=== PATIENT | male | born 1940 | race American Indian/Alaskan Native ===

== ENCOUNTER 2018-04-19 18:55 | Inpatient (IN) | payer MEDICARE, MEDICAID ==
--- NOTE | 2018-04-19 19:11 | ED PDOC ---
"Arrival/HPI - General Chief Complaint: Weakness/Neurological Deficit Time Seen by Provider: 04/19/18 19:09 Historian: Patient EM Caveat: Acuity of Condition - History of Present Illness Narrative History of Present Illness (Text): 04/19/18 19:21 77 yr old male w/ hx of CVA, HTN, DM2 and dementia p/w L leg weakness, transfer from [facility] for rule out CVA. Per RN and transfer papers pt was sent in by Dr. Watson to rule out stroke. Pt was noted to have L Leg weakness right before transfer by Dr. Watson. Unknown last well time. Pt at this point is demented- limited history. Past Medical History - Provider Review Nursing Documentation Reviewed: Yes - Patient History Narrative Patient History: DM2, Stroke, HTN, Dementia Family/Social History Family/Social History: Unknown Family HX Allergies/Home Meds Allergies/Adverse Reactions: Allergies Unobtainable Allergy (Verified 04/19/18 19:36) Review of Systems - Review of Systems Systems not reviewed;Unavailable: Other (dementia) Physical Exam Vital Signs Temp Pulse Resp BP Pulse Ox 04/19/18 19:49 100.0 F H 81 18 140/70 97 04/19/18 19:46 100.0 F H 81 18 140/70 97 Medical Decision Making ED Course and Treatment: 04/19/18 19:41 77 yr old male w/ hx of CVA, Dementia, htn, DM2 p/w LE weakness and exact unk last well per RN and nursing staff at [facility] (likely yesterday). Given hx of antiplatelet w/ plavix, hx of dementia, low NIHSS 2/2 only one LE will likely not be a TPA candidate. appreciate consult w/ Dr. Brock: MRI, ASA pending CT, will see pt. Orders placed, pt to CT. 04/19/18 21:23: Case discussed in detail with Dr. Alberts who accepts patient to her service. EXAM: CT Head Without Intravenous Contrast CLINICAL HISTORY: 77 years old, male; Signs and symptoms; Weakness, extremity; Left; Additional info: Code stroke TECHNIQUE: Axial computed tomography images of the head/brain without intravenous contrast. All CT scans at this facility use at least one of these dose optimization techniques: automated exposure control; mA and/or kV adjustment per patient size (includes targeted exams where dose is matched to clinical indication); or iterative reconstruction. COMPARISON: No relevant prior studies available. FINDINGS: Brain: Diffuse decreased decreased parenchymal density associated with volume loss within the inferior frontal lobes bilaterally likely sequela of remote infarct or traumatic insult. There is moderate diffuse cerebral atrophy present, consistent with this patient's age. The brain is otherwise unremarkable. Normal arredondo-white matter differentiation is present, without acute hemorrhage, or mass. Ventricles: Unremarkable. No ventriculomegaly. Bones/joints: Postsurgical traumatic changes of the frontal bone bilaterally. Callaway hole craniotomy changes of the frontal bones. Moderate bilateral pleural effusions are present. No acute fracture. JOSÉ LUIS SEAY | Preliminary Radiology Report PERSONNEL ADMINISTRATOR (QA) DISCREPANCY? If there is a discrepancy between the preliminary and final interpretation, please notify [facility] via [email or web address]. If you do not have access to our QA portal, call our QA team at [phone] CONFIDENTIALITY STATEMENT This report is intended only for the use of the referring physician, and only in accordance with law, If you received this in error, call [phone] Page 2 of 2 Soft tissues: Unremarkable. Sinuses: Sinuses are clear without air-fluid levels, or mucoperiosteal thickening. Mastoid air cells: Unremarkable as visualized. No mastoid effusion. IMPRESSION: No acute intracranial findings are present. Chronic appearing changes and postsurgical changes, which are described in Dictated and Authenticated by: Drerick Wakefield MD 04/19/2018 8:05 PM Eastern Time ([place] & [place]) Addendum created by Derrick Wakefield MD on 04/19/2018 8:18 PM Eastern Time ([place] & [place]) THIS REPORT CONTAINS FINDINGS THAT MAY BE CRITICAL TO PATIENT CARE. The findings were verbally communicated via telephone conference with Wayne Munoz at 8:17 PM EDT on 04/19/2018. The findings were acknowledged and understood. Initial Report created on 04/19/2018 8:05 PM Eastern Time ([place] & [place]) 04/19/18 22:04: Head CT shows no acute stroke. EKG: Ordered, reviewed, and independently interpreted the EKG. Rate : 82 BPM Rhythm : NSR Interpretation : No STEMI - Lab Interpretations Lab Results: 04/19/18 19:40 04/19/18 19:40 Lab Results 04/19/18 19:45: pCO2 36, pO2 67.0 L, HCO3 22.8, ABG pH 7.41, ABG Total CO2 23.9 , ABG O2 Saturation 96.4, ABG Base Excess -1.4, ABG Potassium 4.1, Glucose 227 H , Lactate 0.7, FiO2 21.0, Sodium 143.0, Chloride 113.0 H, Arterial Blood Potassium 4.1 04/19/18 19:40: Blood Type Pending, Antibody Screen Pending, BBK History Checked No verified bt 04/19/18 19:40: Sodium 146, Potassium 4.4, Chloride 111 H, Carbon Dioxide 22, Anion Gap 18, BUN 96 H, Creatinine 2.9 H, Est GFR ( Amer) 26, Est GFR ( Non-Af Amer) 21, Random Glucose 233 H, Calcium 10.4, Total Bilirubin 0.5, AST 38 , ALT 31, Alkaline Phosphatase 119, Troponin I < 0.01, Total Protein 7.9, Albumin 3.5, Globulin 4.4, Albumin/Globulin Ratio 0.8 L, Triglycerides 121, Cholesterol 96 L, LDL Cholesterol Direct < 30, HDL Cholesterol 19 L 04/19/18 19:40: PT 15.5 H, INR 1.35, APTT 29.4 04/19/18 19:40: WBC 12.0 H, RBC 3.48 L, Hgb 10.1 L, Hct 30.3 L, MCV 87.1, MCH 29.0, MCHC 33.3, RDW 12.9, Plt Count 347, MPV 9.8, Gran % 75.8 H, Lymph % (Auto ) 12.3 L, [place] % (Auto) 9.2 H, Eos % (Auto) 2.3, Baso % (Auto) 0.4, Gran # 9.07 H, Lymph # (Auto) 1.5, [place] # (Auto) 1.1 H, Eos # (Auto) 0.3, Baso # (Auto) 0.05 - RAD Interpretation Radiology Orders: 04/19/18 19:39 HEAD W/O (CODE STROKE) [CT] Stat BRAIN WITHOUT CONTRAST [MRI] Stat 04/19/18 20:03 CHEST PORTABLE [RAD] Stat - EKG Interpretation EKG Interpretation (Text): 04/19/18 20:25 82, NSR, no stemi Interpreted by ED Physician: Yes Type: 12 lead EKG - Medication Orders Current Medication Orders: Discontinued Medications Aspirin (Aspirin Supp) 300 mg RC STAT STA Stop: 04/19/18 20:37 Last Admin: 04/19/18 20:52 Dose: 300 mg NIHSS Scale ([place]) Time Performed: 21:31 - How Severe is the Stoke Baseline Level of Consciousness: 0=Alert LOC to Questions: 1=One correct LOC to commands: 1=Obeys one correctly Best Gaze: 0=Normal Visual: 0=No visual loss Facial: 0=Normal Motor Arm - Left: 0=No drift Motor Arm - Right: 0=No drift Motor Leg - Left: 0=No drift Motor Leg - Right: 0=No drift Limb Ataxia: 0=Absent Sensory: 0=Normal Best Language: 0=No aphasia Dysarthia: 0=Normal articulation Extinction & Inattention (Neglect): 0=Normal, no object Score: 2 Risk Level: Minor Stroke Risk - Notes Notes: Patient has a history of dementia. Disposition/Present on Arrival - Present on Arrival Any Indicators Present on Arrival: No History of DVT/PE: No History of Uncontrolled Diabetes: No Urinary Catheter: No History of Decub. Ulcer: No - Disposition Have Diagnosis and Disposition been Completed?: Yes Diagnosis: Stroke-like episode, LILIBETH (acute kidney injury) Disposition: HOSPITALIZED Disposition Time: 21:30 Patient Plan: Admission Patient Problems: Current Active Problems Problem Status Onset Stroke-like episode Acute LILIBETH (acute kidney injury) Acute Condition: GOOD"
[2018-04-19 19:36] VITALS: BMI 35.9
[2018-04-19 19:53] LABS: ARTERIAL BLOOD GAS HCO3 22.8 mmol/L (21-28); ARTERIAL BLOOD GAS O2 SAT 96.4 % (95-98); ARTERIAL BLOOD GAS PCO2 36 mm/Hg (35-45); ARTERIAL BLOOD GAS PH 7.41 (7.35-7.45); ARTERIAL BLOOD GAS TCO2 23.9 mmol.L (22-28)
[2018-04-19 20:12] LABS: BASO # 0.05 K/mm3 (0.0-2.0); BASO % 0.4 % (0.0-3.0); EOS # 0.3 (0.0-0.7); EOS % 2.3 % (1.5-5.0); GRAN # 9.07 (1.4-6.5); GRAN % 75.8 % (50.0-68.0); HEMOGLOBIN 10.1 g/dL (14.0-18.0); LYMPH # 1.5 (1.2-3.4); LYMPH % 12.3 % (22.0-35.0); MEAN CELL VOLUME 87.1 fl (80.0-105.0); MEAN CORPUSCULAR HGB CONC 33.3 g/dl (31.0-37.0); MEAN PLATELET VOLUME 9.8 fl (7.0-11.0); MONO # 1.1 (0.1-0.6); MONO % 9.2 % (1.0-6.0); RBC 3.48 10^6/uL (3.5-6.1); RED CELL DISTRIBUTION WIDTH 12.9 % (11.5-14.5)
[2018-04-19 20:23] LABS: INR 1.35; PARTIAL THROMBOPLASTIN TIME 29.4 Seconds (25.1-36.5); PROTHROMBIN TIME 15.5 SECONDS (9.4-12.5)
[2018-04-19 20:24] LABS: ALB/GLOB RATIO 0.8 (1.1-1.8); ALBUMIN 3.5 g/dL (3.0-4.8); ALT/SGPT 31 U/L (7-56); AST/SGOT 38 U/L (17-59); BLOOD UREA NITROGEN 96 mg/dL (7-21); CALCIUM 10.4 mg/dL (8.4-10.5); GFR NON-AFRICAN AMERICAN 21; HDL CHOLESTEROL 19 mg/dL (29-60)
[2018-04-19 20:36] LABS: LDL CHOLESTEROL < 30 mg/dL (0-129)
[2018-04-19 20:38] LABS: TROPONIN I < 0.01 ng/mL
--- NOTE | 2018-04-20 08:20 | CT ---
Date of service: 04/19/2018 PROCEDURE: CT HEAD WITHOUT CONTRAST. HISTORY: Code Stroke COMPARISON: None available. TECHNIQUE: Axial computed tomography images were obtained through the head/brain without intravenous contrast. Radiation dose: Total exam DLP = 892.17 mGy-cm. This CT exam was performed using one or more of the following dose reduction techniques: Automated exposure control, adjustment of the mA and/or kV according to patient size, and/or use of iterative reconstruction technique. FINDINGS: HEMORRHAGE: No intracranial hemorrhage. BRAIN: There is cystic encephalomalacia in both frontal lobes and left temporal lobe. No mass, mass effect or abnormal extra-axial fluid VENTRICLES: Collection. Ex vacuo dilatation of the frontal horns. Moderate age-related global parenchymal volume loss with CALVARIUM: Status post left frontal parietal craniotomy. There are cem abort holes in the right frontal and bilateral parietal calvarium PARANASAL SINUSES: Unremarkable as visualized. No significant inflammatory changes. MASTOID AIR CELLS: Unremarkable as visualized. No inflammatory changes. OTHER FINDINGS: None. IMPRESSION: No acute findings. Bifrontal and left temporal cystic encephalomalacia with plaques vacuo dilatation of the lateral ventricles. Moderate age-related global parenchymal volume loss. A preliminary report was provided by [email or web address].
[2018-04-20 08:42] LABS: HDL CHOLESTEROL 20 mg/dL (29-60)
[2018-04-20 08:58] LABS: LDL CHOLESTEROL < 30 mg/dL (0-129)
--- NOTE | 2018-04-20 10:31 | RAD ---
Date of service: 04/19/2018 HISTORY: Code Stroke COMPARISON: No prior. FINDINGS: LUNGS: The lungs are clear. PLEURA: No significant pleural effusion identified, no pneumothorax apparent. There are calcified pleural plaques on the right. CARDIOVASCULAR: Normal. OSSEOUS STRUCTURES: No significant abnormalities. VISUALIZED UPPER ABDOMEN: Normal. OTHER FINDINGS: None. IMPRESSION: No acute findings.
--- NOTE | 2018-04-20 14:26 | CARD ---
APPROVED REPORT Date of service: 04/20/2018 EXAM: Two-dimensional and M-mode echocardiogram with Doppler and color Doppler. INDICATION POSSIBLE STROKE 2D DIMENSIONS Left Atrium (2D)4.6 (1.6-4.0cm)IVSd1.4 (0.7-1.1cm) LVDd4.5 (3.9-5.9cm)PWd1.3 (0.7-1.1cm) LVDs3.1 (2.5-4.0cm)FS (%) 30.3 % LVEF (%)57.8 (>50%) M-Mode DIMENSIONS Aortic Root3.90 (2.2-3.7cm)Aortic Cusp Exc.1.80 (1.5-2.0cm) Aortic Valve AoV Peak Tzofebpt767.0cm/Guillermina Peak GR.10mmHg Mitral Valve MV E Pbnotczh10.2cm/sMV A Irhmtsoq30.2cm/sE/A ratio0.7 TDI Lateral E' Peak V7.21cm/sMedial E' Peak V6.43cm/sE/Lateral E'9.3 E/Medial E'10.5 Pulmonary Valve PV Peak Yjwidcba554.0cm/sPV Peak Grad.5mmHg Tricuspid Valve TR Peak Yohhocry981eg/sRAP [id number] Peak Gr.23mmHg [id number] LEFT VENTRICLE The left ventricle is normal size. There is mild concentric left ventricular hypertrophy. The left ventricular function is normal. The left ventricular ejection fraction is within the normal range. There is normal LV segmental wall motion. Transmitral Doppler flow pattern is Grade I-abnormal relaxation pattern. RIGHT VENTRICLE The right ventricle is mildly dilated. There is normal right ventricular wall thickness. The right ventricular systolic function is normal. ATRIA The left atrium size is normal. The right atrium size is normal. AORTIC VALVE The aortic valve is mildly thickened. There is mild aortic regurgitation. There is no aortic valvular stenosis. MITRAL VALVE The mitral valve is mildly thickened. Mitral regurgitation is mild. There is no mitral valve stenosis. TRICUSPID VALVE The tricuspid valve is normal in structure. There is mild pulmonary hypertension. PULMONIC VALVE The pulmonary valve is normal in structure. There is trace pulmonic valvular regurgitation. GREAT VESSELS The aortic root is mildly enlarged. The IVC is normal in size and collapses >50% with inspiration. PERICARDIAL EFFUSION There is a small loculated anterior pericardial effusion. <Conclusion> The left ventricle is normal size. There is mild concentric left ventricular hypertrophy. The left ventricular function is normal. The left ventricular ejection fraction is within the normal range. There is normal LV segmental wall motion. Transmitral Doppler flow pattern is Grade I-abnormal relaxation pattern. There is mild aortic regurgitation. Mitral regurgitation is mild. There is mild pulmonary hypertension. The aortic root is mildly enlarged.
--- NOTE | 2018-04-20 17:56 | CARD ---
APPROVED REPORT Date of service: 04/19/2018 EKG Measurement Heart [id number] <Conclusion> Sinus rhythm with 1st degree AV block Otherwise normal ECG
[2018-04-20] MEDS: Insulin Reg-LOW-Coverage SC SCH (21:33)
--- NOTE | 2018-04-20 21:48 | CP.PCM.CON ---
History of Present Illness - History of Present Illness History of Present Illness: Ronnie Dominguez PGY2 Neurology Consult Note for Dr. Brock Mr. Mccoy is a 77-year-old -[place] male with a PMH of CVA, HTN, DM 2, dementia who presented with left leg weakness from [facility]. Due to patient's dementia, HPI and ROS were limited. Per ED nursing note, detention staff endorse that patient was "dragging left foot when walking ". Code stroke was activated. Patient failed nursing swallow screen. NIHSS in ED was 2. CT head showed no acute intracranial findings, with diffuse decreased parenchymal density associated with volume loss within the inferior frontal lobes bilaterally likely with the sequela of remote infarct or traumatic insult ; there is moderate diffuse cerebral atrophy present, consistent with this patient's age. When evaluated, the patient has no focal motor or sensory deficits. His speech is of normal likely due to his underlying dementia. But no facial asymmetry was noted. Speech pathologist evaluated the patient, and recommended soft regular consistency diet with thin liquids, aspiration precautions, and to cut food into small pieces. PT evaluated the patient and recommend HUE, to return to [facility] when medically cleared. 12 point ROS was limited due to patient's underlying dementia. Review of Systems - Review of Systems Systems not reviewed;Unavailable: Dementia Past Patient History - CARDIAC Hx Hypertension: Yes - PULMONARY Hx Respiratory Disorders: Yes Hx Pneumonia: Yes - NEUROLOGICAL HX Cerebrovascular Accident: Yes - ENDOCRINE/METABOLIC Hx Diabetes Mellitus Type 2: Yes - HEMATOLOGICAL/ONCOLOGICAL Hx Blood Disorders: Yes Hx Cancer: Yes (prostate) - MUSCULOSKELETAL/RHEUMATOLOGICAL Hx Falls: No - GENITOURINARY/GYNECOLOGICAL Hx Genitourinary Disorders: Yes Hx Incontinence: Yes - PSYCHIATRIC Hx Substance Use: No - SURGICAL HISTORY Hx Surgeries: Yes Meds Allergies/Adverse Reactions: Allergies Allergy/AdvReac Type Severity Reaction Status Date / Time Unobtainable Allergy Verified 04/19/18 19:36 - Medications Medications: Current Medications Aspirin (Aspirin Supp) 300 mg RC DAILY [facility] Last Admin: 04/20/18 09:20 Dose: 300 mg Aspirin (Ecotrin) 81 mg PO DAILY [facility] Clopidogrel Bisulfate (Plavix) 75 mg PO DAILY [facility] Hydrochlorothiazide (Hydrodiuril) 25 mg PO DAILY [facility] Insulin Human Regular (Humulin R Low) 0 units SC ACHS [facility] PRN Reason: Protocol Last Admin: 04/20/18 21:33 Dose: Not Given Levetiracetam (Keppra) 500 mg PO DAILY [facility] Memantine (Namenda) 5 mg PO BID [facility] Last Admin: 04/20/18 17:55 Dose: 5 mg Metoprolol Succinate (Toprol Xl) 25 mg PO DAILY [facility] Repaglinide (Prandin) 1 mg PO DAILY [facility] Physical Exam - Constitutional Appears: Non-toxic, No Acute Distress, Confused - Head Exam Head Exam: NORMAL INSPECTION - Eye Exam Eye Exam: Normal appearance, PERRL - ENT Exam ENT Exam: Mucous Membranes Dry - Neck Exam Neck exam: Positive for: Normal Inspection - Respiratory Exam Respiratory Exam: NORMAL BREATHING PATTERN. absent: Clear to Auscultation Bilateral, Rhonchi, Wheezes - Cardiovascular Exam Cardiovascular Exam: RRR, +S1, +S2 - GI/Abdominal Exam GI & Abdominal Exam: Soft. absent: Distended - Extremities Exam Extremities exam: Positive for: full ROM - Neurological Exam Neurological exam: Altered (baseline dementia) Additional comments: No motor sensory deficits noted No facial asymmetry noted Muscle strength 5/54 extremities Mild upper extremity rigidity noted bilaterally Speech is abnormal due to underlying dementia but no slurring of words noted Results - Vital Signs Recent Vital Signs: Last Vital Signs Temp 99.0 F 04/20/18 18:00 Pulse 78 04/20/18 18:00 Resp 18 04/20/18 18:00 BP 189/86 H 04/20/18 18:00 Pulse Ox 96 04/20/18 18:00 - Labs Result Diagrams: 04/19/18 19:40 04/19/18 19:40 Labs: Laboratory Results - last 24 hr 04/19/18 04/20/18 04/20/18 22:40 08:00 08:04 POC Glucose (mg/dL) 134 H Triglycerides 101 Cholesterol 98 L LDL Cholesterol Direct < 30 HDL Cholesterol 20 L Blood Type Confirm O POSITIVE 04/20/18 04/20/18 04/20/18 11:06 16:09 20:59 POC Glucose (mg/dL) 126 H 273 H 196 H Triglycerides Cholesterol LDL Cholesterol Direct HDL Cholesterol Blood Type Confirm Assessment & Plan - Assessment and Plan (Free Text) Assessment: 77-year-old -[place] male with a PMH of CVA, HTN, DM 2, dementia who presented with left leg weakness from [facility]. Baseline is unclear due to patient's underlying dementia. However, currently the patient is asymptomatic with no motor deficits. Echo was done, and is unremarkable. Lipid panel was reviewed. Plan: - ASA 81mg PO daily - Plavix 75mg PO daily - fall risk - given resolution of symptoms, no further imaging is required at this time - further recs per Dr. Brock Case was reviewed and discussed with Dr. Brock
[2018-04-21 07:38] LABS: HEMOGLOBIN 10.8 g/dL (14.0-18.0); MEAN CELL VOLUME 88.2 fl (80.0-105.0); MEAN CORPUSCULAR HGB CONC 32.8 g/dl (31.0-37.0); MEAN PLATELET VOLUME 9.7 fl (7.0-11.0); RBC 3.73 10^6/uL (3.5-6.1); RED CELL DISTRIBUTION WIDTH 13.2 % (11.5-14.5); WHITE BLOOD COUNT 10.7 10^3/ul (4.5-11.0)
[2018-04-21 07:50] LABS: IRON 37 ug/dL (45-180)
[2018-04-21 07:59] LABS: % IRON SATURATION 18 % (20-55); TOTAL IRON BINDING CAPACITY 209 ug/dL (261-462)
[2018-04-21] MEDS: Insulin Reg-LOW-Coverage SC SCH ×4 (08:09→22:05)
[2018-04-21 08:37] LABS: CALCIUM 10.6 mg/dL (8.4-10.5)
[2018-04-21] MEDS: Metoprolol Succinate 25 mg XL Tab PO SCH (09:22)
--- NOTE | 2018-04-21 10:21 | HP ---
Copied To: Jyotsna Alberts MD Attending MD: Jyotsna Alberts MD The patient is a 77-year-old male. CHIEF COMPLAINT: Left leg weakness. HISTORY OF PRESENT ILLNESS: Mr. Parminder Mccoy is a 77-year-old male with past medical history of CVA, hypertension, diabetes mellitus, dementia, is a resident of [facility], is a wheelchair bound and normally he is dragging his wheelchair with both legs and both upper extremities and , when I was in my rounds in [facility], I felt that his left leg is weak, he is dragging wheelchair only with the right leg and when we tried to make him stand up, he was not putting weight on the left leg and left leg was getting weak. Then, we transferred patient to [facility] , r/o [facility], and we do not know when last time his leg power was complete, was full, was normal. He has had bad dementia. He is not a good historian. Now I saw patient on his bed in the telemetry. Now power is better. No fever. No chills. No hematuria. No hematochezia. PAST MEDICAL HISTORY: As above. Diabetes mellitus, stroke, hypertension, dementia. FAMILY HISTORY: Father and mother, noncontributory. ALLERGIES: PATIENT IS NOT ALLERGIC WITH ANY MEDICATIONS. HOME MEDICATIONS: Reviewed by me. PHYSICAL EXAMINATION: VITAL SIGNS: Temperature 99, T-max 100.2, pulse 82, respiratory rate 18, blood pressure 113/79. HEENT: Head: Normocephalic, atraumatic. Eyes: PERRLA. Extraocular muscles intact. Conjunctivae clear. Nose patent. Mucous membrane moist. NECK: Supple. No carotid bruit, JVD or thyromegaly. CHEST: Bilaterally symmetrical. HEART: S1 and S2 positive. LUNGS: Clear to auscultation. ABDOMEN: Soft. Bowel sounds present. No organomegaly. EXTREMITIES: No edema. No cyanosis. NEUROLOGICAL: Patient is awake and alert, but confused. LABORATORY DATA: White blood cells 12, hemoglobin 10.1, hematocrit 30.3, platelets 347. Glucose 196. Cholesterol 98, triglyceride 101, HDL less than 20, LDL less than 30. Sodium 146,potassium 4.4, BUN noted , creatinine 2.9. Glucose 233. ASSESSMENT AND PLAN: Mr. Parminder Mccoy is a 77-year-old male with leukocytosis, anemia, hyperchloremia, renal insufficiency, diabetes mellitus, history of hypercholesterolemia, now is better, came with weakness of the left leg. CAT scan of the head is done, reviewed by me. Seen by the neurologist, Dr. Brock. History of cerebrovascular accident, hypertension, diabetes mellitus type 2, dementia, came with left leg weakness from [facility]. Echo is done. CAT scan of the head is done, unremarkable. Continue aspirin and Plavix. Fall precautions. According to Dr. Brock, no further imaging, but patient has fever of 100 yesterday, renal insufficiency. We will repeat lab. Gastrointestinal and deep venous thrombosis prophylaxes. We will follow up. Jyotsna Alberts MD MTDYariel
[2018-04-21 12:46] LABS: FOLATE 11.9 ng/mL
[2018-04-21] MEDS: Sodium Chloride 0.9% 1,000 ML IV SCH (17:59)
[2018-04-22] MEDS: Sodium Chloride 0.9% 1,000 ML IV SCH ×2 (05:09→15:07)
[2018-04-22 07:37] LABS: HEMOGLOBIN 10.4 g/dL (14.0-18.0); MEAN CELL VOLUME 89.5 fl (80.0-105.0); MEAN CORPUSCULAR HEMOGLOBIN 28.7 pg (25.0-35.0); MEAN PLATELET VOLUME 9.6 fl (7.0-11.0); RBC 3.63 10^6/uL (3.5-6.1); RED CELL DISTRIBUTION WIDTH 13.4 % (11.5-14.5); WHITE BLOOD COUNT 10.8 10^3/ul (4.5-11.0)
[2018-04-22 08:24] LABS: CALCIUM 10.1 mg/dL (8.4-10.5)
[2018-04-22] MEDS: Insulin Reg-LOW-Coverage SC SCH ×4 (08:32→21:20)
[2018-04-22] MEDS: Metoprolol Succinate 25 mg XL Tab PO SCH (09:27)
[2018-04-22] MEDS: Sodium Chloride 0.45% 1,000 ML IV SCH (18:18)
[2018-04-23] MEDS: Sodium Chloride 0.45% 1,000 ML IV SCH ×3 (05:02→21:50)
[2018-04-23 06:33] LABS: BASO # 0.04 K/mm3 (0.0-2.0); BASO % 0.4 % (0.0-3.0); EOS # 0.3 (0.0-0.7); EOS % 2.8 % (1.5-5.0); GRAN # 7.01 (1.4-6.5); GRAN % 71.2 % (50.0-68.0); HEMOGLOBIN 9.7 g/dL (14.0-18.0); LYMPH # 1.7 (1.2-3.4); LYMPH % 17.1 % (22.0-35.0); MEAN CELL VOLUME 89.4 fl (80.0-105.0); MEAN CORPUSCULAR HEMOGLOBIN 28.5 pg (25.0-35.0); MEAN CORPUSCULAR HGB CONC 31.9 g/dl (31.0-37.0); MEAN PLATELET VOLUME 9.5 fl (7.0-11.0); MONO # 0.8 (0.1-0.6); MONO % 8.5 % (1.0-6.0); RBC 3.4 10^6/uL (3.5-6.1); RED CELL DISTRIBUTION WIDTH 13.3 % (11.5-14.5); WHITE BLOOD COUNT 9.9 10^3/ul (4.5-11.0)
[2018-04-23 06:42] LABS: IRON 37 ug/dL (45-180)
[2018-04-23 06:49] LABS: CALCIUM 10.3 mg/dL (8.4-10.5)
[2018-04-23 06:51] LABS: % IRON SATURATION 19 % (20-55); TOTAL IRON BINDING CAPACITY 197 ug/dL (261-462)
--- NOTE | 2018-04-23 09:06 | PN ---
Copied To: Jyotsna Alberts MD Attending MD: Jyotsna Alberts MD DATE: 04/21/2018 SUBJECTIVE: Patient is a 77-year-old male. Patient is seen and examined on the bedside, looking comfortable. No nausea, vomiting, diarrhea. No hematemesis, hematochezia. No headache. No dizziness. No chest pain. No palpitation. No fever. No chills. PHYSICAL EXAMINATION: VITAL SIGNS: Temperature 98.5, pulse 72, blood pressure 153/76, respiratory rate 18. HEENT: Head: Normocephalic, atraumatic. Eyes: PERRLA. Extraocular muscles intact. Conjunctivae clear. Nose: Patent. Mucous membrane moist. NECK: Supple. No carotid bruits, JVD or thyromegaly. CHEST: Bilaterally symmetrical. HEART: S1 and S2 positive. LUNGS: Clear to auscultation. ABDOMEN: Soft. Bowel sounds present. No organomegaly. EXTREMITIES: No edema. No cyanosis. NEUROLOGIC: Patient is awake, alert. Moving all four extremities. No focal deficit. MEDICATIONS: Aspirin, insulin, hydrochlorothiazide, Keppra, Namenda, Plavix, Prandin, metoprolol. LABORATORY DATA: White blood cells 10.7, hemoglobin 10.8, hematocrit 32.9, platelets 365. Sodium 154, potassium 4.5, BUN 91, creatinine 2.8, glucose 181, iron 37, 98. ASSESSMENT AND PLAN: a 23-ableg-wci male with a history of leukocytosis - improved, anemia, hypernatremia, hyperchloremia, renal insufficiency, diabetes mellitus, hypercalcemia, with history of cerebrovascular accident, hypertension, dementia, came in with left leg weakness from [facility]. Reviewed labs. Continue aspirin and Plavix, fall precaution. Neurologist is on the case; seen by Dr. Brock. Grooming Salon Manager is on the case. Gastrointestinal and deep venous thrombosis prophylaxes. Repeat labs. We will follow up. Jyotsna Alberts MD [facility]ITAL[facility]
--- NOTE | 2018-04-23 09:16 | PN ---
Copied To: Jyotsna Alberts MD Attending MD: Jyotsna Alberts MD DATE: 04/22/2018 SUBJECTIVE: The patient is 77-year-old male. The patient is looking comfortable, lying on the bed. No nausea, vomiting, diarrhea. No hematuria or hematochezia. No swelling of the leg. No chest pain. No palpitation. No headache. No dizziness. PHYSICAL EXAMINATION: VITAL SIGNS: Temperature 97.6, pulse 70, blood pressure 149/68, respiratory rate 18. HEENT: Head normocephalic, atraumatic. Eyes PERRLA. Extraocular muscles intact. Conjunctivae clear. Nose patent. Mucous membrane moist. NECK: Supple. No carotid bruit, JVD or thyromegaly. CHEST: Bilaterally symmetrical. HEART: S1 and S2 positive. LUNGS: Clear to auscultation. ABDOMEN: Soft. Bowel sounds positive. No organomegaly. EXTREMITIES: No edema. No cyanosis. NEUROLOGICAL: The patient is awake and alert. Moving all 4 extremities. No focal deficits. MEDICATIONS: Ecotrin, insulin, Keppra, Namenda, Plavix, Prandin, NS 0.45, metoprolol. LABORATORY DATA: White blood cells 10.8, hemoglobin 10.4, hematocrit 32.5, platelets 407. Sodium noted , potassium 4.5, BUN 81, creatinine 2.7, glucose 184. ASSESSMENT AND PLAN: a 77-year-old male with history of leukocytosis, improved; anemia; hypernatremia, hyperchloremia; renal insufficiency; came with leg weakness, seen by Neurologist, Dr. Jourdan Brock; the patient has history of cerebrovascular accident; hypertension; diabetes mellitus type 2; dementia; currently, the patient is symptomatic with no motor deficit. Echo was done, which is unremarkable. Continue aspirin, Plavix, fall precaution, as per Dr. Brock. Embroidery Assistant is on the case. Getting half normal saline because of high sodium. Gastrointestinal and deep vein thrombosis prophylaxes. Repeat labs. We will follow up. Jyotsna Alberts MD [facility]
[2018-04-23] MEDS: Insulin Reg-LOW-Coverage SC SCH ×4 (09:42→21:46)
[2018-04-23] MEDS: Metoprolol Succinate 25 mg XL Tab PO SCH (09:48)
--- NOTE | 2018-04-23 12:41 | CP.PCM.CON ---
History of Present Illness - History of Present Illness History of Present Illness: Nephrology Consultation Note: Assessment: Stable Acute Kidney Injury (N17.9) likely due to pre-renal state, possible ATN. 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 underlying CKD anemia dementia, CVA Plan No acute need for renal replacement therapy at this time. Hypertension control with meds as ordered. Maintain hemodynamics stable. Avoid hypotension. Patient not on ACEI/ARB due to recent LILIBETH. will add norvasc 5 mg/ day Monitor Input/Output, daily weights and renal function with basic metabolic panel continue with IVF as 0.45% saline. hold hctz neurology following consider to add statins Check urine analysis, spot protein/creatinine, albumin/creatinine ratio. renal/ bladder sonogram Check for 25-OH vitamin D, iPTH, phosphorus level. Anemia work up as ordered Dose meds/antibiotics for reduced GFR. Avoid fleets enema/magnesium based laxatives. Avoid nephrotoxins/NSAIDs/ iodinated contrast (unless needed emergently) Glycemic control Further work up/management as per primary team Thanks for allowing me to participate in care of your patient. Will follow patient with you. Please call if any Qs. 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 renal consult for elevated cr and hypernatremia. this is pt 1st visit here, no baseline available in EMR No known OTC/herbal meds or NSAIDs No recent iodinated contrast exposure. No obvious episodes of low BP ROS: unable to obtain from pt Physical Examination: General Appearance: Comfortable, in no acute respiratory distress, co-operative . Vitals reviewed and noted as below Head; Atraumatic, normocephalic ENT: no ulcers no thrush. Tongue is midline. Oropharynx: no rash or ulcers. EYES: Pupils are equal, round and reactive to light accommodation. Sclera is anicteric. Neck; supple no lymphadenopathy, no thyromegaly or bruit Lungs: Normal respiratory rate/effort. Breath sounds bilateral equal and clear anteriorly Heart: Normal rate. s1s2 normal. No rub or gallop. Extremities: no edema. No varicose veins Neurological: Patient is alert, awake and severe demented. mostly non- communicative Skin: Warm and dry. Normal turgor. No rash. Palpitation: Normal elasticity for age Abdomen: Abdomen is soft. Bowel sounds +. There is no abdominal tenderness, no guarding/rigidity no organomegaly Psych: lack insight and normal affect/mood MSK: no joint tenderness or swelling. Digits and nails normal, no deformity : kidney or bladder not palpable Labs/imaging reviewed. Past medical history, past surgical history, family history, social history, allergy reviewed and noted as below Family hx: no hx of CKD. Rest non-contributory Past Patient History - Past Social History Smoking Status: Never Smoked - CARDIAC Hx Hypertension: Yes - PULMONARY Hx Respiratory Disorders: Yes Hx Pneumonia: Yes - NEUROLOGICAL HX Cerebrovascular Accident: Yes - ENDOCRINE/METABOLIC Hx Diabetes Mellitus Type 2: Yes - HEMATOLOGICAL/ONCOLOGICAL Hx Blood Disorders: Yes Hx Cancer: Yes (prostate) - MUSCULOSKELETAL/RHEUMATOLOGICAL Hx Falls: No - GENITOURINARY/GYNECOLOGICAL Hx Genitourinary Disorders: Yes Hx Incontinence: Yes - PSYCHIATRIC Hx Substance Use: No - SURGICAL HISTORY Hx Surgeries: Yes Meds Allergies/Adverse Reactions: Allergies Allergy/AdvReac Type Severity Reaction Status Date / Time Unobtainable Allergy Verified 04/19/18 19:36 - Medications Medications: Current Medications Aspirin (Ecotrin) 81 mg PO DAILY [facility] Last Admin: 04/23/18 09:48 Dose: 81 mg Clopidogrel Bisulfate (Plavix) 75 mg PO DAILY [facility] Last Admin: 04/23/18 09:48 Dose: 75 mg Sodium Chloride (Sodium Chloride 0.45%) 1,000 mls @ 100 mls/hr IV .Q10H [facility] Last Admin: 04/23/18 05:02 Dose: 100 mls/hr Insulin Human Regular (Humulin R Low) 0 units SC ACHS [facility] PRN Reason: Protocol Last Admin: 04/23/18 11:46 Dose: 2 unit Levetiracetam (Keppra) 500 mg PO DAILY [facility] Last Admin: 04/22/18 10:40 Dose: 500 mg Memantine (Namenda) 5 mg PO BID [facility] Last Admin: 04/23/18 09:48 Dose: 5 mg Metoprolol Succinate (Toprol Xl) 25 mg PO DAILY [facility] Last Admin: 04/23/18 09:48 Dose: 25 mg Repaglinide (Prandin) 1 mg PO DAILY [facility] Last Admin: 04/23/18 09:48 Dose: 1 mg Results - Vital Signs Recent Vital Signs: Last Vital Signs Temp 98 F 04/23/18 11:59 Pulse 64 04/23/18 11:59 Resp 18 04/23/18 11:59 BP 149/68 04/23/18 11:59 Pulse Ox 98 04/23/18 08:29 - Labs Result Diagrams: 04/23/18 05:30 04/23/18 05:30 Labs: Laboratory Results - last 24 hr 04/22/18 04/22/18 04/23/18 16:23 21:17 05:30 WBC RBC Hgb Hct MCV MCH MCHC RDW Plt Count MPV Gran % Lymph % (Auto) [place] % (Auto) Eos % (Auto) Baso % (Auto) Gran # Lymph # (Auto) [place] # (Auto) Eos # (Auto) Baso # (Auto) Sodium Potassium Chloride Carbon Dioxide Anion Gap BUN Creatinine Est GFR ( Amer) Est GFR (Non-Af Amer) POC Glucose (mg/dL) 138 H 185 H Random Glucose Calcium Phosphorus Magnesium Iron 37 L TIBC 197 L % Saturation 19 L 04/23/18 04/23/18 04/23/18 05:30 05:30 07:11 WBC 9.9 RBC 3.40 L Hgb 9.7 L Hct 30.4 L MCV 89.4 MCH 28.5 MCHC 31.9 RDW 13.3 Plt Count 410 MPV 9.5 Gran % 71.2 H Lymph % (Auto) 17.1 L Clinton % (Auto) 8.5 H Eos % (Auto) 2.8 Baso % (Auto) 0.4 Gran # 7.01 H Lymph # (Auto) 1.7 Clinton # (Auto) 0.8 H Eos # (Auto) 0.3 Baso # (Auto) 0.04 Sodium 152 H Potassium 4.5 Chloride 116 H Carbon Dioxide 24 Anion Gap 16 BUN 74 H Creatinine 2.5 H Est GFR ( Amer) 31 Est GFR (Non-Af Amer) 25 POC Glucose (mg/dL) 238 H Random Glucose 206 H Calcium 10.3 Phosphorus 3.5 Magnesium 1.9 Iron TIBC % Saturation 04/23/18 11:05 WBC RBC Hgb Hct MCV MCH MCHC RDW Plt Count MPV Gran % Lymph % (Auto) Clinton % (Auto) Eos % (Auto) Baso % (Auto) Gran # Lymph # (Auto) Clinton # (Auto) Eos # (Auto) Baso # (Auto) Sodium Potassium Chloride Carbon Dioxide Anion Gap BUN Creatinine Est GFR ( Amer) Est GFR (Non-Af Amer) POC Glucose (mg/dL) 235 H Random Glucose Calcium Phosphorus Magnesium Iron TIBC % Saturation
[2018-04-23 13:03] LABS: FOLATE 9.8 ng/mL
[2018-04-23 13:26] LABS: BASO # 0.03 K/mm3 (0.0-2.0); BASO % 0.3 % (0.0-3.0); EOS # 0.3 (0.0-0.7); EOS % 2.7 % (1.5-5.0); GRAN # 6.55 (1.4-6.5); GRAN % 67.5 % (50.0-68.0); HEMOGLOBIN 9.6 g/dL (14.0-18.0); LYMPH # 1.9 (1.2-3.4); LYMPH % 19.8 % (22.0-35.0); MEAN CELL VOLUME 90.2 fl (80.0-105.0); MEAN CORPUSCULAR HEMOGLOBIN 28.6 pg (25.0-35.0); MEAN CORPUSCULAR HGB CONC 31.7 g/dl (31.0-37.0); MONO # 0.9 (0.1-0.6); MONO % 9.7 % (1.0-6.0); RBC 3.36 10^6/uL (3.5-6.1); RED CELL DISTRIBUTION WIDTH 13.3 % (11.5-14.5); WHITE BLOOD COUNT 9.7 10^3/ul (4.5-11.0)
--- NOTE | 2018-04-23 14:50 | CP.PCM.PN ---
<Diana Kathleen - Last Filed: 04/23/18 15:29> Subjective - Date & Time of Evaluation Date of Evaluation: 04/23/18 Time of Evaluation: 10:45 - Subjective Subjective: PGY-1 Diana Kathleen D.O. Neurology progress note for Dr. Hernandez service: Patient is seen and examined this morning. No acute events overnight reported. Patient is lying comfortably in bed, not in any acute distress. He answers ok, good, and no to each question asked. He can follow a very limited number of simple commands. He cannot state his name. He is able to move all extremities equally. He denies pain, including MORENO. Patient has baseline dementia , so it was not possible to obtain full ROS. Objective - Vital Signs/Intake and Output Vital Signs (last 24 hours): Temp Pulse Resp BP Pulse Ox 98 F 64 18 149/68 98 04/23/18 11:59 04/23/18 13:17 04/23/18 11:59 04/23/18 13:17 04/23/18 08:29 Intake and Output: 04/23/18 04/23/18 06:59 18:59 Intake Total 480 Output Total 2 Balance 478 - Medications Medications: Current Medications Amlodipine Besylate (Norvasc) 5 mg PO DAILY [facility] Last Admin: 04/23/18 13:17 Dose: 5 mg Aspirin (Ecotrin) 81 mg PO DAILY [facility] Last Admin: 04/23/18 09:48 Dose: 81 mg Clopidogrel Bisulfate (Plavix) 75 mg PO DAILY [facility] Last Admin: 04/23/18 09:48 Dose: 75 mg Sodium Chloride (Sodium Chloride 0.45%) 1,000 mls @ 100 mls/hr IV .Q10H [facility] Last Admin: 04/23/18 13:18 Dose: 100 mls/hr Insulin Human Regular (Humulin R Low) 0 units SC ACHS [facility] PRN Reason: Protocol Last Admin: 04/23/18 11:46 Dose: 2 unit Levetiracetam (Keppra) 500 mg PO DAILY [facility] Last Admin: 04/23/18 13:15 Dose: 500 mg Memantine (Namenda) 5 mg PO BID [facility] Last Admin: 04/23/18 09:48 Dose: 5 mg Metoprolol Succinate (Toprol Xl) 25 mg PO DAILY [facility] Last Admin: 04/23/18 09:48 Dose: 25 mg Repaglinide (Prandin) 1 mg PO DAILY [facility] Last Admin: 04/23/18 09:48 Dose: 1 mg - Labs Labs: 04/23/18 13:15 04/23/18 05:30 PT 15.5 SECONDS (9.4-12.5) H 04/19/18 19:40 INR 1.35 04/19/18 19:40 APTT 29.4 Seconds (25.1-36.5) 04/19/18 19:40 - Constitutional Appears: Non-toxic, No Acute Distress - Head Exam Head Exam: ATRAUMATIC, NORMAL INSPECTION, NORMOCEPHALIC - Eye Exam Eye Exam: EOMI, Normal appearance, PERRL - ENT Exam ENT Exam: Mucous Membranes Moist, Normal Exam - Neck Exam Neck Exam: Normal Inspection - Respiratory Exam Respiratory Exam: Clear to Ausculation Bilateral, NORMAL BREATHING PATTERN - Cardiovascular Exam Cardiovascular Exam: REGULAR RHYTHM, +S1, +S2 - GI/Abdominal Exam GI & Abdominal Exam: Soft. absent: Tenderness - Rectal Exam Rectal Exam: Deferred - Extremities Exam Extremities Exam: Normal Capillary Refill, Normal Inspection. absent: Pedal Edema, Tenderness - Back Exam Back Exam: NORMAL INSPECTION - Neurological Exam Neurological Exam: Alert, Awake. absent: Motor Sensory Deficit Neuro motor strength exam: Left Upper Extremity: 5, Right Upper Extremity: 5, Left Lower Extremity: 5, Right Lower Extremity: 5 Additional comments: no facial asymmetry no sensory deficits noted paucity of speech- suspect baseline baseline dementia - Psychiatric Exam Psychiatric exam: Normal Affect Additional comments: unable to articulate- baseline dementia - Skin Skin Exam: Dry, Intact, Normal Color, Warm Assessment and Plan - Assessment and Plan (Free Text) Assessment: Patient is a 77 yo male with a history of severe dementia, CVA, T2DM, HTN, and seizure disorder who presented from [facility] when his primary care provider noticed LLE weakness. CT head was negative for acute pathology. Patient 's symptoms have since resolved. Plan: LLE weakness with h/o CVA, resolved- suspect TIA, possible seizure activity (h/ o seizure disorder) - CT head: no acute pathology - Echo: EF 57%, no significant abnormalities - Continue ASA 81 mg PO daily - Continue Plavix 75 mg PO daily - Continue Keppra 500 mg PO daily- renal dosing (Cr 2.5) - Fall precautions - PT consulted- rec HUE - OT consulted - ST consulted- rec soft regular diet, thin liquids Dementia- suspect vascular - CT head: Bifrontal and left temporal cystic encephalomalacia with plaques vacuo dilatation of the lateral ventricles. Moderate age- related global parenchymal volume loss. - Continue memantine 5 mg PO BID LILIBETH- Cr 2.5 - Management per primary team and nephrology - Avoid nephrotoxic agents (NSAIDs, contrast dye) Hypernatremia - Management per primary team and nephrology - Currently on 1/2NS @ 100 mL/hr - Continue to monitor BMP Anemia - Management per primary team - Iron low (37), TIBC low (197), % sat low (19), ferritin high (1230) - B12 wnl (601) - Folate wnl (9.8) - Continue to monitor CBC HTN, chronic- SBP 140s-160s - Management per primary team - Currently on metoprolol 25 mg PO daily, Norvasc 5 mg PO daily T2DM, chronic- BG 100s-200s - Management per primary team and endocrinology - Currently on repaglinide 1 mg PO daily, ISS low dose with Accuchecks ACHS Dispo: Return to [facility] when medically cleared. Case was discussed with attending, Dr. Goodwin. <Willy Goodwin - Last Filed: 04/23/18 23:53> Objective - Vital Signs/Intake and Output Vital Signs (last 24 hours): Temp Pulse Resp BP Pulse Ox 98.6 F 65 19 151/81 H 98 04/23/18 16:40 04/23/18 16:40 04/23/18 16:40 04/23/18 16:40 04/23/18 16:40 - Medications Medications: Current Medications Amlodipine Besylate (Norvasc) 5 mg PO DAILY [facility] Last Admin: 04/23/18 13:17 Dose: 5 mg Aspirin (Ecotrin) 81 mg PO DAILY [facility] Last Admin: 04/23/18 09:48 Dose: 81 mg Clopidogrel Bisulfate (Plavix) 75 mg PO DAILY [facility] Last Admin: 04/23/18 09:48 Dose: 75 mg Sodium Chloride (Sodium Chloride 0.45%) 1,000 mls @ 100 mls/hr IV .Q10H [facility] Last Admin: 04/23/18 21:50 Dose: 100 mls/hr Insulin Human Regular (Humulin R Low) 0 units SC ACHS [facility] PRN Reason: Protocol Last Admin: 04/23/18 21:46 Dose: Not Given Levetiracetam (Keppra) 500 mg PO DAILY [facility] Last Admin: 04/23/18 13:15 Dose: 500 mg Memantine (Namenda) 5 mg PO BID [facility] Last Admin: 04/23/18 19:06 Dose: 5 mg Metoprolol Succinate (Toprol Xl) 25 mg PO DAILY [facility] Last Admin: 04/23/18 09:48 Dose: 25 mg Repaglinide (Prandin) 1 mg PO DAILY [facility] Last Admin: 04/23/18 09:48 Dose: 1 mg - Labs Labs: 04/23/18 13:15 04/23/18 05:30 PT 15.5 SECONDS (9.4-12.5) H 04/19/18 19:40 INR 1.35 04/19/18 19:40 APTT 29.4 Seconds (25.1-36.5) 04/19/18 19:40 Attending/Attestation - Attestation I have personally seen and examined this patient.: Yes I have fully participated in the care of the patient.: Yes I have reviewed all pertinent clinical information, including history, physical exam and plan: Yes Notes (Text): 04/23/18 23:51 I personally examined the patient and on my exam, the patient was clearly aphasic/with difficulty with comprehension and expression of speech. He all extremities, with slightly more weakness on the left side overall. Otherwise, I agree with the assessment and plan. 04/23/18 23:53
--- NOTE | 2018-04-23 23:08 | PN ---
Copied To: Jyotsna Alberts MD Attending MD: Jyotsna Alberts MD DATE: 04/23/2018 SUBJECTIVE: The patient is seen and examined on the bedside, looking comfortable. Discontinued telemetry. No fever. No chills. No hematuria or hematochezia. The patient is a not very good historian. He answered okay for every question. Overnight, no acute event happened. No fever. No chills. The patient has baseline dementia, so it is not possible to obtain a full review of systems. PHYSICAL EXAMINATION: VITAL SIGNS: Temperature 98, pulse 64, respiratory rate 18, blood pressure 149/68, pulse oximetry of 98. HEENT: Head normocephalic, atraumatic. Eyes PERRLA. Extraocular muscles intact. Conjunctivae clear. Nose patent. Mucous membrane moist. NECK: Supple. No carotid bruit. No JVD or thyromegaly. CHEST: Bilaterally symmetrical. HEART: S1 and S2 positive. LUNGS: Clear to auscultation. ABDOMEN: Soft. Bowel sounds positive. No organomegaly. EXTREMITIES: No edema. No cyanosis. NEUROLOGICAL: The patient is awake and alert. Moving all 4 extremities. No focal deficits. MEDICATIONS: Norvasc, Ecotrin, Plavix, sodium chloride, insulin, Keppra, Namenda, metoprolol, Prandin. LABORATORY DATA: White blood cells 9.7, hemoglobin 9.6, hematocrit 30.3, platelets 397. Sodium 152, potassium 4.5, BUN 74, creatinine 2.5, glucose 206. ASSESSMENT AND PLAN: Mr. Parminder Mccoy, 77-year-old male with anemia, hypernatremia, renal insufficiency, hyperglycemia, has advanced dementia, history of cerebrovascular accident, hypertension, seizure disorder, resident of [facility]. Came with left lower extremity weakness, improved. Rule out transient ischemic attack. CTA head was negative for acute pathology. Echocardiogram done shows ejection fraction of 55%. No significant abnormalities noted. Continue aspirin, Plavix, Keppra. Fall precautions. Occupational therapy, physical therapy. 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 Try to avoid nonsteroidal antiinflammatory drug. Hypernatremia, the patient is getting 0.5 normal saline 100 mL/hour. Continue monitoring labs. Gastrointestinal, deep venous thrombosis prophylaxes. Repeat lab. The patient is stable. Discharge from telemetry to the medical floor. Diabetes mellitus type 2, stable. As soon as sodium will getter, we will transfer the patient back to [facility]. Meanwhile, gastrointestinal, deep venous thrombosis prophylaxes, repeat labs. We will follow up. Jyotsna Alberts MD
[2018-04-24] MEDS: Sodium Chloride 0.45% 1,000 ML IV SCH (00:11)
[2018-04-24 06:46] LABS: CALCIUM 9.4 mg/dL (8.4-10.5)
[2018-04-24 08:16] VITALS: BP 145/73; PULSE 60; RESP 20; TEMP 98.1; O2SAT 96
--- NOTE | 2018-04-24 09:29 | CP.PCM.PN ---
<Diana Kathleen - Last Filed: 04/24/18 14:08> Subjective - Date & Time of Evaluation Date of Evaluation: 04/24/18 Time of Evaluation: 10:00 - Subjective Subjective: PGY-1 Diana Kathleen D.O. Neurology progress note for Dr. Goodwin's service: Patient is seen and examined this morning. No events reported overnight. Patient is not in acute distress. He is able to state his full name. He moves each extremity on command. He responds to all other questions with ok and good. Objective - Vital Signs/Intake and Output Vital Signs (last 24 hours): Temp Pulse Resp BP Pulse Ox 98.1 F 60 20 145/73 96 04/24/18 08:16 04/24/18 08:16 04/24/18 08:16 04/24/18 08:16 04/24/18 08:16 Intake and Output: 04/24/18 04/24/18 06:59 18:59 Intake Total 1200 Balance 1200 - Medications Medications: Current Medications Amlodipine Besylate (Norvasc) 5 mg PO DAILY [facility] Last Admin: 04/23/18 13:17 Dose: 5 mg Aspirin (Ecotrin) 81 mg PO DAILY [facility] Last Admin: 04/23/18 09:48 Dose: 81 mg Clopidogrel Bisulfate (Plavix) 75 mg PO DAILY [facility] Last Admin: 04/23/18 09:48 Dose: 75 mg Sodium Chloride (Sodium Chloride 0.45%) 1,000 mls @ 100 mls/hr IV .Q10H [facility] Last Admin: 04/24/18 00:11 Dose: 100 mls/hr Insulin Human Regular (Humulin R Low) 0 units SC ACHS [facility] PRN Reason: Protocol Last Admin: 04/23/18 21:46 Dose: Not Given Levetiracetam (Keppra) 500 mg PO DAILY [facility] Last Admin: 04/23/18 13:15 Dose: 500 mg Memantine (Namenda) 5 mg PO BID [facility] Last Admin: 04/23/18 19:06 Dose: 5 mg Metoprolol Succinate (Toprol Xl) 25 mg PO DAILY [facility] Last Admin: 04/23/18 09:48 Dose: 25 mg Repaglinide (Prandin) 1 mg PO DAILY [facility] Last Admin: 04/23/18 09:48 Dose: 1 mg - Labs Labs: 04/23/18 13:15 04/24/18 06:00 PT 15.5 SECONDS (9.4-12.5) H 04/19/18 19:40 INR 1.35 04/19/18 19:40 APTT 29.4 Seconds (25.1-36.5) 04/19/18 19:40 - Constitutional Appears: Non-toxic, No Acute Distress - Head Exam Head Exam: ATRAUMATIC, NORMAL INSPECTION, NORMOCEPHALIC - Eye Exam Eye Exam: EOMI, Normal appearance, PERRL - ENT Exam ENT Exam: Mucous Membranes Moist, Normal Exam - Neck Exam Neck Exam: Normal Inspection - Respiratory Exam Respiratory Exam: Clear to Ausculation Bilateral, NORMAL BREATHING PATTERN - Cardiovascular Exam Cardiovascular Exam: REGULAR RHYTHM, +S1, +S2 - GI/Abdominal Exam GI & Abdominal Exam: Soft. absent: Tenderness - Rectal Exam Rectal Exam: Deferred - Extremities Exam Extremities Exam: Normal Capillary Refill, Normal Inspection. absent: Pedal Edema, Tenderness - Neurological Exam Neurological Exam: Alert, Awake. absent: Motor Sensory Deficit Additional comments: no change from yesterday's examination- no gross motor deficits not oriented aphasia - Psychiatric Exam Psychiatric exam: Normal Affect Additional comments: unable to articulate- baseline dementia - Skin Skin Exam: Dry, Intact, Normal Color, Warm Assessment and Plan - Assessment and Plan (Free Text) Assessment: Patient is a 77 yo male with a history of severe dementia, CVA, T2DM, HTN, and seizure disorder who presented from [facility] when his primary care provider noticed LLE weakness. CT head was negative for acute pathology. Patient 's symptoms have since resolved. Plan: LLE weakness with h/o CVA, resolved- suspect TIA, possible seizure activity (h/ o seizure disorder) - CT head: no acute pathology - Echo: EF 57%, no significant abnormalities - Continue ASA 81 mg PO daily - Continue Plavix 75 mg PO daily - Continue Keppra 500 mg PO daily- renal dosing (Cr 2.2) - Fall precautions - PT consulted- rec HUE - OT consulted - ST consulted- rec soft regular diet, thin liquids Dementia- suspect vascular - CT head: Bifrontal and left temporal cystic encephalomalacia with plaques vacuo dilatation of the lateral ventricles. Moderate age- related global parenchymal volume loss. - Continue memantine 5 mg PO BID LILIBETH, improving- Cr 2.2 - Management per primary team and nephrology - Avoid nephrotoxic agents (NSAIDs, contrast dye) Hypernatremia, resolved- Na 140 - Management per primary team and nephrology - Currently on 1/2NS @ 100 mL/hr Anemia- Hgb 9.6 - Management per primary team - Iron low (37), TIBC low (197), % sat low (19), ferritin high (1230) - B12 wnl (601) - Folate wnl (9.8) - Given Darbepoetin 60 mg SC x1 HTN, chronic- SBP 140s-160s - Management per primary team - Currently on metoprolol 25 mg PO daily, Norvasc 5 mg PO daily T2DM, chronic- BG 100s-200s - Management per primary team - Currently on repaglinide 1 mg PO daily, ISS low dose with Accuchecks [facility] Patient is cleared from a neurology standpoint. Case was discussed with attending, Dr. Goodwin. <Willy Goodwin - Last Filed: 04/24/18 17:27> Objective - Vital Signs/Intake and Output Vital Signs (last 24 hours): Temp Pulse Resp BP Pulse Ox 98.1 F 60 20 145/73 96 04/24/18 08:16 04/24/18 09:33 04/24/18 08:16 04/24/18 09:33 04/24/18 08:16 Intake and Output: 04/24/18 04/24/18 06:59 18:59 Intake Total 1200 Balance 1200 - Medications Medications: Current Medications Amlodipine Besylate (Norvasc) 5 mg PO DAILY [facility] Last Admin: 04/24/18 09:33 Dose: 5 mg Aspirin (Ecotrin) 81 mg PO DAILY [facility] Last Admin: 04/24/18 09:33 Dose: 81 mg Atorvastatin Calcium (Lipitor) 20 mg PO DIN [facility] Clopidogrel Bisulfate (Plavix) 75 mg PO DAILY [facility] Last Admin: 04/24/18 09:33 Dose: 75 mg Sodium Chloride (Sodium Chloride 0.45%) 1,000 mls @ 100 mls/hr IV .Q10H [facility] Last Admin: 04/24/18 00:11 Dose: 100 mls/hr Insulin Human Regular (Humulin R Low) 0 units SC [facility] PRN Reason: Protocol Last Admin: 04/24/18 14:10 Dose: 2 unit Levetiracetam (Keppra) 500 mg PO DAILY [facility] Last Admin: 04/24/18 09:42 Dose: 500 mg Memantine (Namenda) 5 mg PO BID [facility] Last Admin: 04/24/18 09:33 Dose: 5 mg Metoprolol Succinate (Toprol Xl) 25 mg PO DAILY [facility] Last Admin: 04/24/18 09:33 Dose: 25 mg Repaglinide (Prandin) 1 mg PO DAILY [facility] Last Admin: 04/24/18 09:33 Dose: 1 mg - Labs Labs: 04/23/18 13:15 04/24/18 06:00 PT 15.5 SECONDS (9.4-12.5) H 04/19/18 19:40 INR 1.35 04/19/18 19:40 APTT 29.4 Seconds (25.1-36.5) 04/19/18 19:40 Attending/Attestation - Attestation I have personally seen and examined this patient.: Yes I have fully participated in the care of the patient.: Yes I have reviewed all pertinent clinical information, including history, physical exam and plan: Yes Notes (Text): 04/24/18 17:26 Mr. Mccoy was seen and examined today at bedside by me. I noted that the patient's neurological exam was unchanged compared with yesterday's examination. I agree with the resident's assessment and plan.
[2018-04-24] MEDS: Metoprolol Succinate 25 mg XL Tab PO SCH (09:33)
[2018-04-24] MEDS: Insulin Reg-LOW-Coverage SC SCH ×2 (09:34→14:10)
[2018-04-24] MEDS ORDERED: Darbepoetin Alfa 60 mcg/ml Inj SC ONE (12:12)
--- NOTE | 2018-04-24 12:16 | CP.PCM.PN ---
Subjective - Date & Time of Evaluation Date of Evaluation: 04/24/18 Time of Evaluation: 12:12 - Subjective Subjective: Nephrology Consultation Note: Assessment: Stable Acute Kidney Injury (N17.9) likely due to pre-renal state, possible ATN. 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 underlying CKD anemia dementia, CVA Plan No acute need for renal replacement therapy at this time. Hypertension control with meds as ordered. Maintain hemodynamics stable. Avoid hypotension. Patient not on ACEI/ARB due to recent LILIBETH. added norvasc 5 mg/day Monitor Input/Output, daily weights and renal function with basic metabolic panel continue with IVF as 0.45% saline. hold hctz neurology following added statins as lipitor 20 mg ordered a dose of aransep 60 mcg on 04/24/18 Check urine analysis, spot protein/creatinine, albumin/creatinine ratio. renal/ bladder sonogram Check for 25-OH vitamin D, iPTH, phosphorus level. Anemia work up as ordered Dose meds/antibiotics for reduced GFR. Avoid fleets enema/magnesium based laxatives. Avoid nephrotoxins/NSAIDs/ iodinated contrast (unless needed emergently) Glycemic control Further work up/management as per primary team pt stable for d/c from renal perspective when planned with outpt 1 week follow up Thanks for allowing me to participate in care of your patient. Will follow patient with you. Please call if any Qs. had d/w team Dr Augusto Denton Office: [phone] Chief Complaint; unable to obtain Reason for consult: Acute Kidney Injury HPI: Pt is a 77 M with hx of hypertension (years), DM, CVA and dementia , [facility] resident presented with complaints of left side weakness and concerns for CVA. renal consult for elevated cr and hypernatremia. this is pt 1st visit here, no baseline available in EMR No known OTC/herbal meds or NSAIDs No recent iodinated contrast exposure. No obvious episodes of low BP ROS: unable to obtain from pt Physical Examination: General Appearance: Comfortable, in no acute respiratory distress, co-operative . Vitals reviewed and noted as below Head; Atraumatic, normocephalic ENT: no ulcers no thrush. Tongue is midline. Oropharynx: no rash or ulcers. EYES: Pupils are equal, round and reactive to light accommodation. Sclera is anicteric. Neck; supple no lymphadenopathy, no thyromegaly or bruit Lungs: Normal respiratory rate/effort. Breath sounds bilateral equal and clear anteriorly Heart: Normal rate. s1s2 normal. No rub or gallop. Extremities: no edema. No varicose veins Neurological: Patient is alert, awake and severe demented. mostly non- communicative Skin: Warm and dry. Normal turgor. No rash. Palpitation: Normal elasticity for age Abdomen: Abdomen is soft. Bowel sounds +. There is no abdominal tenderness, no guarding/rigidity no organomegaly Psych: lack insight and normal affect/mood MSK: no joint tenderness or swelling. Digits and nails normal, no deformity : kidney or bladder not palpable Labs/imaging reviewed. Past medical history, past surgical history, family history, social history, allergy reviewed and noted as below Family hx: no hx of CKD. Rest non-contributory Objective - Vital Signs/Intake and Output Vital Signs (last 24 hours): Temp Pulse Resp BP Pulse Ox 98.1 F 60 20 145/73 96 04/24/18 08:16 04/24/18 09:33 04/24/18 08:16 04/24/18 09:33 04/24/18 08:16 Intake and Output: 04/24/18 04/24/18 06:59 18:59 Intake Total 1200 Balance 1200 - Medications Medications: Current Medications Amlodipine Besylate (Norvasc) 5 mg PO DAILY [facility] Last Admin: 04/24/18 09:33 Dose: 5 mg Aspirin (Ecotrin) 81 mg PO DAILY [facility] Last Admin: 04/24/18 09:33 Dose: 81 mg Clopidogrel Bisulfate (Plavix) 75 mg PO DAILY [facility] Last Admin: 04/24/18 09:33 Dose: 75 mg Sodium Chloride (Sodium Chloride 0.45%) 1,000 mls @ 100 mls/hr IV .Q10H [facility] Last Admin: 04/24/18 00:11 Dose: 100 mls/hr Insulin Human Regular (Humulin R Low) 0 units SC ACHS [facility] PRN Reason: Protocol Last Admin: 04/24/18 09:34 Dose: 2 unit Levetiracetam (Keppra) 500 mg PO DAILY [facility] Last Admin: 04/24/18 09:42 Dose: 500 mg Memantine (Namenda) 5 mg PO BID [facility] Last Admin: 04/24/18 09:33 Dose: 5 mg Metoprolol Succinate (Toprol Xl) 25 mg PO DAILY [facility] Last Admin: 04/24/18 09:33 Dose: 25 mg Repaglinide (Prandin) 1 mg PO DAILY [facility] Last Admin: 04/24/18 09:33 Dose: 1 mg - Labs Labs: 04/23/18 13:15 04/24/18 06:00 PT 15.5 SECONDS (9.4-12.5) H 04/19/18 19:40 INR 1.35 04/19/18 19:40 APTT 29.4 Seconds (25.1-36.5) 04/19/18 19:40
--- NOTE | 2018-04-24 15:50 | US ---
Date of service: 04/23/2018 PROCEDURE: Ultrasound of the Kidneys HISTORY: LILIBETH COMPARISON: None available. TECHNIQUE: Sonogram of the kidneys. FINDINGS: RIGHT KIDNEY: Measures: 6.5 x 3.5 x 3.5 cm. Right kidney is atrophic and poorly evaluated due to extensive overlying bowel gas. No gross mass or hydronephrosis is seen related. There is no perinephric fluid collection or prominent urolithiasis appreciated. Cortical atrophy is noted as well as echogenicity of the overall parenchyma and poor corticomedullary differentiation suggesting intrinsic medical renal disease. LEFT KIDNEY: Measures: 8.1 x 4.1 x 4.2 cm. Borderline atrophy. Intrinsic medical renal disease may be present as well here, given poor corticomedullary differentiation and increased cortical echogenicity. No obstructive uropathy or definitive cyst or solid renal parenchymal mass. No urolithiasis appreciable. URINARY BLADDER-OTHER FINDINGS: No suspicious mural thickening is seen focally or diffusely throughout urinary bladder however the urinary bladder is not adequately distended preliminarily. Prevoid volume measures 58 cc with a postvoid residual of 48 cc or 82.8 percent. Clinically correlate further. No cholelithiasis or gross diverticular changes related. Bilateral ureteral jets have been captured on color Doppler ultrasound. Incidental note is made of a distended gallbladder with extensive cholelithiasis and sludge in a pattern that could indicate cholecystitis. Clinically correlate further. Mural thickening may measure up to 6 mm. Seminal vesicles not identified. IMPRESSION: An atrophic right kidney and lower limits normal size left kidney are identified. Likely intrinsic medical renal disease bilaterally. No obstructive uropathy bilaterally. An adequate distention of the urinary bladder to evaluate for postvoid residual. 82.8 percent points residual has been recorded for prevoid volume of 58 cc. Consider repeat examination following adequate distention of the urinary bladder. Urinary bladder is otherwise unremarkable appearing. Incidental, marked gallbladder distention with cholelithiasis and sludge in the lumen. Mural thickening may extend up to 6 mm thickness and cholecystitis is not excluded. Clinically correlate further.
[2018-04-24 16:05] LABS: URINE BILIRUBIN NEGATIVE (NEGATIVE); URINE BLOOD NEGATIVE (NEGATIVE); URINE GLUCOSE (UA) NEGATIVE (NEGATIVE); URINE LEUKOCYTE ESTERASE SMALL Leu/uL (NEGATIVE); URINE PROTEIN NEGATIVE mg/dL (<30 mg/dL)
[2018-04-24 16:07] LABS: URINE APPEARANCE CLEAR (CLEAR); URINE COLOR YELLOW (YELLOW)
[2018-04-24 16:24] LABS: URINE BACTERIA MOD (NEG); URINE EPITHELIAL CELLS 0 - 2 /hpf (0-5); URINE RBC 0 - 2 /hpf (0-2)
[2018-04-24 16:33] LABS: OSMOLALITY,URINE 633 mosm/kg (300-1000)
[2018-04-25 12:20] LABS: ALBUMIN (PEP) 2.4 g/dL (3.8-4.8); ALPHA-1-GLOBULIN (PEP) 0.5 g/dL (0.2-0.3)
--- NOTE | 2018-04-25 23:59 | DS ---
Copied To: Jyotsna Alberts MD Attending MD: Jyotsna Alberts MD CHIEF COMPLAINT: Weakness in the left leg. HISTORY OF PRESENT ILLNESS: Mr. Parminder Mccoy is a 77-year-old male with past medical history of CVA, hypertension, diabetes mellitus, dementia, resident of [facility], is wheelchair bound and normally he is dragging his wheelchair with both legs and both upper extremities, but on when I saw the patient in the [facility], his left leg was weak. He was dragging wheelchair only with the right leg and when we tried to make the patient stand up, he was not able to put weight on the left leg. We brought the patient to [facility] with CAT scan of the head, chest x-ray, echocardiography, renal ultrasound, seen by Dr. Augusto Denton, senior business manager for hypernatremia, got half NS, seen by neurologist, Dr. Willy Goodwin and Dr. Brock. The patient improved. Leg was back to normal, rule out TIA. Discharged back to [facility]. We will continue treatment there. PAST MEDICAL HISTORY: As above. Diabetes mellitus, stroke, hypertension, dementia. FAMILY HISTORY: Father and mother, noncontributory. ALLERGIES: THE PATIENT IS NOT ALLERGIC WITH ANY MEDICATIONS. HOME MEDICATIONS: Reviewed by me. REVIEW OF SYSTEMS: The patient was seen and examined on the bedside in the morning, looking comfortable. No nausea, vomiting or diarrhea. No hematuria or hematochezia. No swelling of the legs. No chest pain, no palpitation. No headache, no dizziness. No fever, no chills. PHYSICAL EXAMINATION: VITAL SIGNS: Temperature 98.1, pulse 60, respiratory rate 20, blood pressure 145/73, pulse oximetry 96. HEENT: Head normocephalic, atraumatic. Eyes PERRLA. Extraocular muscles intact. Conjunctivae clear. Nose patent. NECK: Supple. No carotid bruit. No JVD or thyromegaly. CHEST: Bilaterally symmetrical. HEART: S1 and S2 positive. LUNGS: Clear to auscultation. ABDOMEN: Soft. Bowel sounds positive. No organomegaly. EXTREMITIES: No edema. No cyanosis. NEUROLOGICAL: The patient is awake and alert. Moving all 4 extremities. No focal deficit. MEDICATIONS: Norvasc, aspirin, Plavix, got half NS, insulin, Keppra, Namenda, Toprol, Prandin. LABORATORY DATA: White blood cells 9.7, hemoglobin 9.6, hematocrit 30.3, platelets 397. Sodium 140, potassium 4.4, BUN , creatinine 2.2, glucose 198. ASSESSMENT AND PLAN: Mr. Parminder Mccoy is a 77-year-old male with hypernatremia, hyperchloremia, renal insufficiency, hyperglycemia, acute kidney injury likely due to prerenal state, possibly acute tubular necrosis, hypertension, diabetic kidney disease, hypercalcemia, no acute need for renal replacement therapy at this time, need good high blood pressure control. Dr. Chung added Norvasc. Monitor input and output. Try to avoid nonsteroidal antiinflammatory drugs. Brick Maker cleared the patient for discharge. Discharged to alf with followup in office after one week. Gastrointestinal and deep venous thrombosis prophylaxes given. We will follow up. Jyotsna Alberts MD
== END 2018-04-24 18:28 | DRG 683 ==
LOC: ED 18:55 → ERH 21:29 → 2RNO 22:48 → 3RNO 04-23 14:22
PROVIDERS: ADMIT Internal Medicine; ATTEND Internal Medicine
DX: N17.0 Acute kidney failure with tubular necrosis (principal); G45.9 Transient cerebral ischemic attack, unspecified; E87.0 Hyperosmolality and hypernatremia; N39.0 Urinary tract infection, site not specified; R47.01 Aphasia; D64.9 Anemia, unspecified; E11.22 Type 2 diabetes mellitus with diabetic chronic kidney disease; E11.65 Type 2 diabetes mellitus with hyperglycemia; E78.00 Pure hypercholesterolemia, unspecified; E87.8 Other disorders of electrolyte and fluid balance, not elsewhere classified; F03.90 Unspecified dementia, unspecified severity, without behavioral disturbance, psychotic disturbance, mood disturbance, and anxiety; G40.909 Epilepsy, unspecified, not intractable, without status epilepticus; I12.9 Hypertensive chronic kidney disease with stage 1 through stage 4 chronic kidney disease, or unspecified chronic kidney disease; N18.9 Chronic kidney disease, unspecified; Z79.02 Long term (current) use of antithrombotics/antiplatelets; Z79.82 Long term (current) use of aspirin; Z86.73 Personal history of transient ischemic attack (TIA), and cerebral infarction without residual deficits; Z87.01 Personal history of pneumonia (recurrent); Z99.3 Dependence on wheelchair

== ENCOUNTER 2018-11-15 09:44 | Outpatient (CLI) | payer MEDICARE, MEDICAID | END 2018-11-15 09:45 | disposition home or self-care (01) | LOC: RAD 09:44 ==